=== PATIENT | female | born 1965 | race Caucasian/White ===

== ENCOUNTER 2022-10-16 08:45 | Emergency (ER) | payer OTHER, SELFPAY ==
[2022-10-16] VITALS (22 sets, daily range): BP systolic 120–140; BP diastolic 78–108; PULSE 93–152; RESP 14; TEMP 36.8; O2SAT 95–99; BMI 30.4
--- NOTE | 2022-10-16 09:42 | CRLHL7_ITS ---
For Patients: As a result of the Century Cures Act, medical imaging exams and procedure reports are released immediately into your electronic medical record. You may view this report before your referring provider. If you have questions, please contact your health care provider. Indication: Tachycardia Comparison: None available. Technique: PA and lateral views of the chest Findings: There is no focal consolidation, effusion, or pneumothorax. The cardiomediastinal silhouette is within normal limits. The bony thorax is grossly intact. Impression: No acute cardiopulmonary abnormality. Dictated by Phil Camarillo MD @ 10/16/2022 10:27:59 AM (Electronically Signed)
[2022-10-16 09:56] LABS: Basophils Absolute Auto 0.02 K/uL (0.00-0.30); Basophils Percent Auto 0.3 % (0.0-3.0); Eosinophils Absolute Auto 0.09 K/uL (0.00-0.50); Eosinophils Percent Auto 1.2 % (0.0-7.0); Hematocrit 45.6 % (33.0-51.0); Lymphocytes Percent Auto 13.5 % (20-44); Mean Corpuscular HGB Conc 33 gm/dL (32-36); Mean Corpuscular Hemoglobin 29 pg (26-34); Mean Corpuscular Volume 87 fL (80-100); Monocytes Percent Auto 8.2 % (0.0-11.0); Neutrophils Percent Auto 76.8 % (42.0-72.0); Platelet Count* 209 K/uL (140-440); RDW Coefficient of Variation % 13.1 % (11.5-15.5); Red Blood Count 5.27 m/uL (4.00-5.20); White Blood Count* 7.57 K/uL (4.50-11.00)
[2022-10-16 10:02] LABS: Slide Review Reflex No
[2022-10-16 10:14] LABS: Amphetamine Screen Urine Negative (Negative); Barbiturate Screen Urine Negative (Negative); Benzodiazepines Screen Urine Negative (Negative); Cannabinoid Screen Urine Negative (Negative); Cocaine Screen Urine Negative (Negative); Methadone Screen Urine Negative (Negative); Methamphetamines Screen Urine Negative (Negative); Opiate Screen Urine Negative (Negative); Oxycodone Screen Urine Negative (Negative); Phencyclidine Screen Urine Negative (Negative); Tricyclic Antidepressant Urine Negative (Negative)
[2022-10-16 10:16] LABS: INR 0.98 (0.91-1.10); Prothrombin Time 13.6 Seconds
[2022-10-16 10:17] LABS: Partial Thromboplastin Time* 36 Seconds (23-33)
[2022-10-16 10:24] LABS: Albumin* 4.4 g/dL (3.3-5.0)
[2022-10-16 10:25] LABS: Chloride* 104 mmol/L (96-114); Potassium* 3.7 mmol/L (3.6-5.1); Sodium* 139 mmol/L (135-149)
[2022-10-16 10:27] LABS: Alkaline Phosphatase* 84 U/L (40-150); Aspartate Amino Transferase* 26 U/L (12-35); Bilirubin Direct* 0.3 mg/dL (0.0-0.5); Bilirubin Total* 0.7 mg/dL (0.1-1.5); Total Protein* 7.4 g/dL (6.0-8.3)
[2022-10-16] MEDS: 0.9 % SODIUM CHLORIDE 1000 ml 1,000 ML IV ×2 (10:27→11:40)
[2022-10-16 10:28] LABS: Alanine Aminotransferase* 19 U/L (4-35); Blood Urea Nitrogen* 12 mg/dL (7-30); Carbon Dioxide* 28 mmol/L (20-32); Creatinine* 0.8 mg/dL (0.5-1.5); Est. Creatinine Clearance* 76.38; Estimated Glomerular Filt Rate 85 ml/min
[2022-10-16 10:29] LABS: Calcium* 9.3 mg/dL (8.4-10.6); Glucose* 115 mg/dL (60-115)
[2022-10-16 10:34] LABS: Ethanol* < 0.01 % (0.01-0.03)
[2022-10-16 10:39] LABS: NT Pro B Type NatriureticPept* 149 pg/mL
[2022-10-16 11:01] LABS: PCR FLU A Negative PCR FLU A (Negative); PCR FLU B Negative PCR FLU B (Negative); PCR RSV Negative PCR RSV (Negative)
[2022-10-16 11:03] LABS: SARS PCR* Negative SARS-CoV-2 (Negative)
--- NOTE | 2022-10-16 15:46 | ED.ARRPALP ---
HPI - Arrhythmia/Palpitations General Date Seen: 10/16/22 Chief Complaint: Arrhythmia/Palpitations Stated Complaint: Elevated HR Time Seen by Provider: 10/16/22 08:53 Source: patient and family Mode of arrival: ambulatory Limitations: no limitations History of Present Illness HPI narrative: Patient is a very nice 57-year-old female who was over for her scheduled colonoscopy in found to have a heart rate of 150, she was sent over here for further evaluation. She is otherwise asymptomatic, no chest pain or shortness of breath and can not tell that her heart is racing. Only med she takes was the MiraLax solution to clean herself up for the colonoscopy, this was done for screening reasons. She denies any personal history of any heart issues, shortness of breath, exertional dyspnea, syncope, palpitations, denies using any illicit substances such as cocaine, cold medications, or other issues. She is here with her daughter her daughter does have a history of [id number] however. Related Data Home Medications Medication Instructions Recorded Confirmed No Known Home Medications 10/16/22 10/16/22 Allergies Allergy/AdvReac Type Severity Reaction Status Date / Time No Known Drug Allergies Allergy Verified 10/16/22 09:00 Review of Systems Status of ROS: Reports: 10 or more systems reviewed and unremarkable except as noted in History and below PFSH PFS Social History Smoking Status: Never smoker How often do you have a drink containing alcohol: monthly or less AUDIT-C Alcohol total score: 1 Non-prescribed substance use: denies use service: No Exam Narrative: Exam Narrative: Patient is no apparent distress sitting in room 8, pupils are equal round reactive to light there is no scleral icterus or redness or TMs are normal her oropharynx is normal there is no adenopathy in her anterior posterior chains, or thyroid is normal midline palpable not enlarged, carotid upstrokes are equal bilaterally, JVP is flat, chest is clear bilaterally with no wheezing crackles noted, heart sounds other than having a rapid rate or otherwise normal, no S3-S4 clicks murmurs or gallops, abdomen is soft, no tenderness is listed, no organomegaly, bowel sounds are normal, pelvis is normal stable to rocking, no CVA tenderness, moves all extremities independently well, neurologic exam reveals no evidence of deficits, normal proximal distal muscle screen, no edema, normal pulses in her distal extremities both upper and lower, and no rashes. Const: Vital Signs, click to edit/add: Vital Signs - 24 hr 10/16/22 09:00 10/16/22 09:23 10/16/22 09:30 Temperature 98.3 F Pulse Rate 141 H 144 H Pulse Rate [Right Pulse Oximeter] 144 H Respiratory Rate 14 Blood Pressure Blood Pressure [Ri ght Upper Arm] 135/104 H Pulse Oximetry 98 97 98 Oxygen Delivery Me thod Room Air 10/16/22 09:31 10/16/22 09:45 10/16/22 09:47 Temperature Pulse Rate 149 H 147 H 146 H Pulse Rate [Right Pulse Oximeter] Respiratory Rate Blood Pressure 125/78 126/90 H Blood Pressure [Ri ght Upper Arm] Pulse Oximetry 97 97 99 Oxygen Delivery Me thod 10/16/22 10:07 10/16/22 10:16 10/16/22 10:16 Temperature Pulse Rate 150 H 144 H 143 H Pulse Rate [Right Pulse Oximeter] Respiratory Rate Blood Pressure 120/81 Blood Pressure [Ri ght Upper Arm] Pulse Oximetry 98 96 95 Oxygen Delivery Me thod 10/16/22 10:31 10/16/22 10:31 Temperature Pulse Rate 146 H 145 H Pulse Rate [Right Pulse Oximeter] Respiratory Rate Blood Pressure 131/86 Blood Pressure [Ri ght Upper Arm] Pulse Oximetry 97 96 Oxygen Delivery Me thod Documenting provider has reviewed patient's vital signs: yes Course Course Hospital Course: Patient was seen in room 8, she received 2 L of fluids and with the 2 L she converted back into normal sinus rhythm, from her supraventricular tachycardia, she was asymptomatic throughout, I discussed with her that she should follow-up with her primary care physician in consider at least an echo to make sure everything looks okay, I did not place or any medications nor do I think she needs any anticoagulants,. I did talk to her about her mildly elevated TSH, that she should follow-up with her primary care physician. Vital Signs Vital signs: Initial Vital Signs Temperature 98.3 F 10/16/22 09:00 Temperature Source Temporal Artery Scan 10/16/22 09:00 Pulse Rate 144 H 10/16/22 09:00 Respiratory Rate 14 10/16/22 09:00 Blood Pressure 135/104 H 10/16/22 09:00 Blood Pressure Mean 114 10/16/22 09:00 Blood Pressure Position Sitting 10/16/22 09:00 Pulse Oximetry 98 10/16/22 09:00 Oxygen Delivery Method Room Air 10/16/22 09:00 Vital Signs Temperature 98.3 F 10/16/22 09:00 Pulse Rate 144 H 10/16/22 09:00 Respiratory Rate 14 10/16/22 09:00 Blood Pressure 135/104 H 10/16/22 09:00 Pulse Oximetry 98 10/16/22 09:00 Oxygen Delivery Method Room Air 10/16/22 09:00 Temperature 98.3 F 10/16/22 09:00 Pulse Rate 145 H 10/16/22 10:31 Respiratory Rate 14 10/16/22 09:00 Blood Pressure 131/86 10/16/22 10:31 Pulse Oximetry 96 10/16/22 10:31 Oxygen Delivery Method Room Air 10/16/22 09:00 MDM - Arrhythmia/Palpitations MDM Narrative Medical decision making narrative: Differential diagnosis includes but is not limited to psychosocial stress, thyroid abnormalities, CHF, SVT, atrial fibrillation, ventricular tachycardia and ventricular fibrillation. This includes the life-threatening complications of heart failure, V-tach, and VFib Medical Records Attestation: I reviewed the patient's medical records. Lab Data Attestation: I reviewed the patient's lab results. Labs: Lab Results 10/16/22 10/16/22 10/16/22 Range/Units 09:15 10:00 10:10 WBC 7.57 (4.50-11.00) K/uL RBC 5.27 H (4.00-5.20) m/uL Hgb 15.0 (12.0-16.0) gm/dL Hct 45.6 (33.0-51.0) % MCV 87 (80-100) fL MCH 29 (26-34) pg MCHC 33 (32-36) gm/dL RDW Coeff of Sergio 13.1 (11.5-15.5) % Plt Count 209 (140-440) K/uL Neut % (Auto) 76.8 H (42.0-72.0) % Lymph % (Auto) 13.5 L (20-44) % [place] % (Auto) 8.2 (0.0-11.0) % Eos % (Auto) 1.2 (0.0-7.0) % Baso % (Auto) 0.3 (0.0-3.0) % Neut # (Auto) 5.80 (1.7-7.0) K/uL Lymph # (Auto) 1.00 (0.90-2.90) K/uL [place] # (Auto) 0.60 (0.00-0.90) K/UL Eos # (Auto) 0.09 (0.00-0.50) K/uL Baso # (Auto) 0.02 (0.00-0.30) K/uL INR 0.98 (0.91-1.10) APTT 36 H (23-33) Seconds Sodium 139 (135-149) mmol/L Potassium 3.7 (3.6-5.1) mmol/L Chloride 104 (96-114) mmol/L Carbon Dioxide 28 (20-32) mmol/L BUN 12 (7-30) mg/dL Creatinine 0.8 (0.5-1.5) mg/dL Estimated Creat Clear 76.38 Estimated GFR 85 ml/min Glucose 115 (60-115) mg/dL Calcium 9.3 (8.4-10.6) mg/dL Magnesium 2.0 (1.5-2.6) mg/dL Total Bilirubin 0.7 (0.1-1.5) mg/dL Direct Bilirubin 0.3 (0.0-0.5) mg/dL AST 26 (12-35) U/L ALT 19 (4-35) U/L Alkaline Phosphatase 84 (40-150) U/L NT-Pro-B Natriuret Pep 149 pg/mL Total Protein 7.4 (6.0-8.3) g/dL Albumin 4.4 (3.3-5.0) g/dL TSH 4.280 H (0.270-4.20) uIU/mL Urine Opiates Screen Negative (Negative) Ur Oxycodone Screen Negative (Negative) Urine Methadone Screen Negative (Negative) Ur Propoxyphene Screen Negative (Negative) Ur Barbiturates Screen Negative (Negative) U Tricyclic Antidepress Negative (Negative) Ur Phencyclidine Scrn Negative (Negative) Ur Amphetamines Screen Negative (Negative) U Methamphetamines Scrn Negative (Negative) U Benzodiazepines Scrn Negative (Negative) Urine Cocaine Screen Negative (Negative) U Marijuana (THC) Screen Negative (Negative) Ur Drug Screen Comment See Note Ethyl Alcohol < 0.01 L (0.01-0.03) % SARS-CoV-2 (PCR) Negative SARS-CoV-2 (Negative) Influenza Type A (PCR) Negative PCR FLU A (Negative) Influenza Type B (PCR) Negative PCR FLU B (Negative) RSV (PCR) Negative PCR RSV (Negative) POC Troponin I 0.00 L (0.01-0.04) ng/ml Imaging Data Chest x-ray: Attestation: I have reviewed the pertinent imaging results. My impression: Normal Radiologist's impression: No acute changes ECG Data Attestation: I personally reviewed and interpreted this ECG as follows: Prior ECG tracings: not available for review Interpretation: Initial EKG shows a normal sinus rhythm with sinus tachycardia, at 149, there is some ST wave flattening in very subtle ST wave good depression noted laterally inferiorly, really throughout all the precordium. QT QRS and AL intervals are normal, 2nd EKG done after conversion shows normal sinus rhythm with no ST wave changes. New Discharge Plan Discharge Clinical Impression: Supraventricular tachycardia, Elevated TSH Patient Disposition: Home w/ Parent or Adult Condition: Improved Instructions: Supraventricular Tachycardia (ED), Hypothyroidism (ED) Additional Instructions: Home rest eat as tolerated today light activity for today, follow-up with primary care to discuss the elevated TSH, and where to go with SVT. At a minimum I would suggest an echocardiogram, and possibly a Cardiology consult. Return here if signs and symptoms of worsening, Prescriptions: No Action No Known Home Medications Follow Up/Referrals: Steffi Clinton PA-C [Primary Care Provider] - Stand Alone Forms: [employer] Info Instructions
== END 2022-10-16 12:20 | disposition home or self-care (01) ==
PROVIDERS: Emergency Provider Family Medicine; PCP Physician Assistant Medical
DX: I47.1 Supraventricular tachycardia (principal)
CPT/HCPCS: 36415; 71046; 80048; 80076; 80306; 82077; 83735; 83880; 84443; 84484; 85025; 85610; 85730; 87502; 87634; 87635; 93005; 99284; J7030

== ENCOUNTER 2023-02-25 10:10 | Outpatient (CLI) | payer OTHER, SELFPAY ==
--- NOTE | 2023-02-25 11:18 | W.ANESCHARGE ---
Anesthesia Charges Start Date/Time Anesthesia Start Date: 02/25/23 Anesthesia Start Time: 10:50 Stop Date/Time Anesthesia Stop Date: 02/25/23 Anesthesia Stop Time: 11:18
== END 2023-02-25 10:11 | disposition home or self-care (01) ==
LOC: OP CLINIC 10:11
PROVIDERS: PCP Physician Assistant Medical; Visit Provider Internal Medicine Gastroenterology
DX: Z12.11 Encounter for screening for malignant neoplasm of colon (principal); K63.5 Polyp of colon; K62.89 Other specified diseases of anus and rectum; K57.30 Diverticulosis of large intestine without perforation or abscess without bleeding
CPT/HCPCS: 45385; 811; 88305; J2704